=== PATIENT | male | born 1995 | race Caucasian/White ===

== ENCOUNTER 2024-05-06 00:01 | Emergency (ER) | payer OTHER ==
[~2024-05-06] VITALS: Ht 182.9 cm; Wt 86.2 kg
[2024-05-06 01:11] VITALS: TEMP 97.8
[2024-05-06] MEDS ORDERED: dexaMETHasone SOD PHOSPHATE 1 ML ONE (01:18)
[2024-05-06] MEDS ORDERED: ALBUTEROL FS 2.5 MG/0.5 ML VIAL.NEB ONE ×2 (01:22→01:36)
[2024-05-06] MEDS ORDERED: IPRATROPIUM NEB FS 0.5 MG/2.5 ML AMPUL.NEB ONE ×2 (01:22→01:36)
[2024-05-06] MEDS: dexaMETHasone SOD PHOSPHATE 4 MG/ML VIAL IM ONE (01:24)
[2024-05-06 01:27] VITALS: O2SAT 88
[2024-05-06] MEDS: IPRATROPIUM NEB FS 0.5 MG/2.5 ML AMPUL.NEB NEB ONE ×2 (01:27→01:40)
[2024-05-06] MEDS: ALBUTEROL FS 2.5 MG/0.5 ML VIAL.NEB NEB ONE ×2 (01:27→01:40)
[2024-05-06 01:38] VITALS: O2SAT 99
[2024-05-06 01:48] VITALS: O2SAT 99
[2024-05-06 02:15] VITALS: BP 130/70; O2SAT 95
[2024-05-06] MEDS ORDERED: PRED50TA PO (02:39)
[2024-05-06] MEDS ORDERED: ALBU8.5H8 INH (02:39)
== END 2024-05-06 02:51 | disposition home or self-care (01) ==
LOC: ER 00:05
DX: J98.01 Acute bronchospasm (principal); Z79.52 Long term (current) use of systemic steroids; Z87.01 Personal history of pneumonia (recurrent); Z91.018 Allergy to other foods; Z91.09 Other allergy status, other than to drugs and biological substances; Z20.822 Contact with and (suspected) exposure to COVID-19
CPT/HCPCS: 99285; 71045; 87426; 96372; 87804 ×2; 94640; J1100

== ENCOUNTER 2024-06-02 15:13 | Emergency (ER) | payer OTHER ==
[~2024-06-02] VITALS: Ht 182.9 cm; Wt 86.2 kg
[~2024-06-02 15:13] MED LIST: ALBU8.5H8 INH; PRED50TA PO
[2024-06-02] MEDS ORDERED: PRED50TA PO (16:07)
[2024-06-02] MEDS ORDERED: FLUT10.62 INH (16:07)
[2024-06-02] MEDS ORDERED: FLUT16SP16 BNOSTRILS (16:08)
[2024-06-02] MEDS ORDERED: predniSONE 20 MG TABLET ONE (16:20)
[2024-06-02 16:21] LABS: BASOPHILS % (AUTO) 0.3 % (0.0-2.0); EOSINOPHILS # (AUTO) 0.2 K/uL (0.0-0.7); EOSINOPHILS % (AUTO) 3.1 % (0.0-6.0); HEMATOCRIT 43 % (39-51); HEMOGLOBIN 14.8 g/dL (13.5-17.5); LYMPHOCYTES # (AUTO) 0.4 K/uL (0.8-4.8); LYMPHOCYTES % (AUTO) 7.9 % (20.0-44.0); MEAN CORPUSCULAR HEMOGLOBIN 31 PG (26.0-33.0); MEAN CORPUSCULAR HGB CONC 34 g/dl (31.0-36.0); MEAN CORPUSCULAR VOLUME 90 fL (80-96); MONOCYTES # (AUTO) 0.6 K/uL (0.1-1.30); MONOCYTES % (AUTO) 11.2 % (2.0-12.0); NEUTROPHILS # (AUTO) 4.3 K/uL (1.8-8.9); NEUTROPHILS % (AUTO) 77.5 % (43.0-81.0); PLATELET COUNT (AUTO) 239 K/uL (150-450); RED CELL DISTRIBUTION WIDTH 13.3 % (11.5-15.0); WHITE BLOOD COUNT (AUTO) 5.5 K/uL (4.3-11.0)
[2024-06-02] MEDS: predniSONE 20 MG TABLET PO ONE (16:25)
[2024-06-02] MEDS ORDERED: ALBUTEROL FS 2.5 MG/3 ML VIAL.NEB ONE (16:30)
[2024-06-02] MEDS ORDERED: IPRATROPIUM NEB FS 0.5 MG/2.5 ML AMPUL.NEB ONE (16:30)
[2024-06-02] MEDS: IPRATROPIUM NEB FS 0.5 MG/2.5 ML AMPUL.NEB NEB ONE (16:36)
[2024-06-02] MEDS: ALBUTEROL FS 2.5 MG/3 ML VIAL.NEB CONTNEB ONE (16:36)
[2024-06-02 16:37] VITALS: O2SAT 94
[2024-06-02] MEDS ORDERED: ACETAMINOPHEN ES 500 MG TABLET ONE (16:40)
[2024-06-02] MEDS: ACETAMINOPHEN ES 500 MG TABLET PO ONE (16:43)
[2024-06-02 16:51] VITALS: O2SAT 98
[2024-06-02 17:06] VITALS: O2SAT 99
[2024-06-02] MEDS: IV NS 0.9% 1,000 ML BAG IV ONE (17:10)
[2024-06-02 17:39] LABS: CALCIUM, SERUM 9.3 mg/dL (8.5-10.1); POTASSIUM 3.6 mmol/L (3.5-5.1)
[2024-06-02 18:02] VITALS: TEMP 99.1
[2024-06-02 19:40] VITALS: BP 122/70; O2SAT 98
== END 2024-06-02 18:30 | disposition home or self-care (01) ==
LOC: ER 15:29
DX: J45.901 Unspecified asthma with (acute) exacerbation (principal); J06.9 Acute upper respiratory infection, unspecified; Z79.51 Long term (current) use of inhaled steroids; Z79.52 Long term (current) use of systemic steroids; Z20.822 Contact with and (suspected) exposure to COVID-19
CPT/HCPCS: 99285; 96360; 71045; 87426; 85025; 80048; 36415; 94640; J7512; J7030